=== PATIENT | male | born 1995 | race Caucasian/White ===

== ENCOUNTER → 2017-04-10 13:31 | Emergency (ER) | payer BC ==
[~2017-04-10 13:31] MED LIST: HYDROcodone/ACETAMIN 5-325 MG* 1 TAB PO ONE; Tetan/Diph/Pertus SYR(Tdap)* 0.5 ML SYR(BOOSTRIX) use SYR IM ONE
[2017-04-10 16:59] VITALS: BP 140/67
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
== END | disposition home or self-care (01) ==
LOC: ED 13:31
DX: T23.061A Burn of unspecified degree of back of right hand, initial encounter (principal); T22.011A Burn of unspecified degree of right forearm, initial encounter; T31.0 Burns involving less than 10% of body surface; X08.8XXA Exposure to other specified smoke, fire and flames, initial encounter; Y93.89 Activity, other specified; Y92.000 Kitchen of unspecified non-institutional (private) residence as the place of occurrence of the external cause; Z23 Encounter for immunization; F17.210 Nicotine dependence, cigarettes, uncomplicated
CPT/HCPCS: 90471; 90715; 99282

== ENCOUNTER 2018-07-13 15:55 | Emergency (ER) | payer SELFPAY ==
[2018-07-13 16:07] VITALS: BP 159/98
[2018-07-13] MEDS ORDERED: cefTRIAXone VIAL(*) 250 MG VIAL IM ONE (16:41)
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
[2018-07-13] MEDS ORDERED: Lidocaine 1%* 5 ML VIAL INJ ONE (16:57)
--- NOTE | 2018-07-14 17:26 | ED ---
Progress - Progress Note Progress Note: chlamydia negative in the urine, d/o doxycycline Course/Dx - Diagnoses Provider Diagnoses: Urethritis, nonspecific Discharge - Sign-Out/Discharge Documenting (check all that apply): Patient Departure All imaging exams completed and their final reports reviewed: No Studies - Discharge Plan Condition: Good Disposition: HOME Prescriptions: DOXYcycline CAP(*) [DOXYcycline 100MG CAP(*)] 100 mg PO BID 7 Days #14 cap Patient Education Materials: Nonspecific Urethritis in Men (ED) Referrals: Salomón Ying MD [Primary Care Provider] - - Billing Disposition and Condition Condition: GOOD Disposition: Home
== END 2018-07-13 17:23 | disposition home or self-care (01) ==
LOC: UCEAST 15:55
DX: N34.2 Other urethritis (principal); F17.200 Nicotine dependence, unspecified, uncomplicated
CPT/HCPCS: 81003; 87491; 87591; 99212; G0463; J0696

== ENCOUNTER 2018-08-08 22:41 | Emergency (ER) | payer BC ==
--- NOTE | 2018-08-08 23:00 | ED ---
Upper Extremity Pain - HPI Summary HPI Summary: Patient is a 23 y/o M presenting to ED with complaints of right shoulder pain. An hour ago, patient slipped on ice, grabbed a bar to hold himself up, patient experienced pain afterwards. He denies Hx of dislocated shoulders, musculoskeletal problems. Patient last ate at 1800 today. On triage, pain is rated 7/10, nothing is noted to aggravate/alleviate Sx. Home medications and allergies are reviewed. - History of Current Complaint Chief Complaint: EDExtremityUpper Stated Complaint: RIGHT SHOULDER INJURY Time Seen by Provider: 08/08/18 22:51 Hx Obtained From: Patient Mechanism Of Injury: Fall From A Standing Position Onset/Duration: Started Hours Ago - 1 hour, Still Present Timing: Constant, Lasting Hours - 1 hour Severity Currently: Severe - 7/10 Pain Location: Shoulder - right Aggravating Factor(s): Nothing Alleviating Factor(s): Nothing Associated Signs & Symptoms: Positive: Other - right shoulder pain - Allergies/Home Medications Allergies/Adverse Reactions: Allergies Allergy/AdvReac Type Severity Reaction Status Date / Time No Known Allergies Allergy Verified 08/08/18 22:53 PMH/Surg Hx/FS Hx/Imm Hx Sensory History: Denies: Hx Legally Blind, Hx Deafness Opthamlomology History: Denies: Hx Legally Blind EENT History: Denies: Hx Deafness - Surgical History Surgery Procedure, Year, and Place: appy Infectious Disease History: No Infectious Disease History: Denies: Traveled Outside the [place] in Last 30 Days - Family History Known Family History: Positive: Hypertension Negative: Cardiac Disease, Diabetes - Social History Alcohol Use: Daily Alcohol Amount: 2-3 Substance Use Type: Reports: None Hx Tobacco Use: Yes Smoking Status (MU): Heavy Every Day Tobacco Smoker Review of Systems Negative: Fever - on vitals, temp is 99.3 F Musculoskeletal: Other - POSITIVE - RIGHT SHOULDER PAIN All Other Systems Reviewed And Are Negative: Yes Physical Exam - Summary Physical Exam Summary: VITAL SIGNS: Reviewed. GENERAL: Patient is a well-developed and nourished male who is lying comfortable in the stretcher. Patient is not in any acute respiratory distress. HEAD AND FACE: No signs of trauma. No ecchymosis, hematomas or skull depressions. No sinus tenderness. EYES: PERRLA, EOMI x 2, No injected conjunctiva, no nystagmus. EARS: Hearing grossly intact. Ear canals and tympanic membranes are within normal limits. MOUTH: Oropharynx within normal limits. NECK: Supple, trachea is midline, no adenopathy, no JVD, no carotid bruit, no c- spine tenderness, neck with full ROM. CHEST: Symmetric, no tenderness at palpation LUNGS: Clear to auscultation bilaterally. No wheezing or crackles. CVS: Regular rate and rhythm, S1 and S2 present, no murmurs or gallops appreciated. ABDOMEN: Soft, non-tender. No signs of distention. No rebound no guarding, and no masses palpated. Bowel sounds are normal. EXTREMITIES: No edema, no cyanosis or clubbing. Right shoulder tenderness, patient is neurovascularly intact. NEURO: Alert and oriented x 3. No acute neurological deficits. Speech is normal and follows commands. SKIN: Dry and warm Triage Information Reviewed: Yes Vital Signs On Initial Exam: Initial Vitals Temp Pulse Resp BP Pulse Ox 99.3 F 78 16 161/100 99 08/08/18 22:46 08/08/18 22:46 08/08/18 22:46 08/08/18 22:46 08/08/18 22:46 Vital Signs Reviewed: Yes Procedures - Procedure Summary Procedure Summary: Patient was given 5 mg Versed and 100 mcg Fentanyl for moderate sedation. Traction, counter-traction used for right shoulder reduction attempt, right shoulder was reduced with no complications. Patient is neuro-vascularly intact pre and post procedure, post reduction x-ray showed good alignment. Patient was given sling for right arm. - Joint Reduction RIGHT SHOULDER Joint Reduction Site: shoulder (R) Conscious Sedation: Yes Pre-Procedure NV Exam: Yes - Pt is neurovascularly intact pre and post reduction Post Joint Reduction Film: joint reduced Diagnostics - Vital Signs Vital Signs Temp Pulse Resp BP Pulse Ox 08/08/18 22:46 99.3 F 78 16 161/100 99 - Laboratory Lab Statement: Any lab studies that have been ordered have been reviewed, and results considered in the medical decision making process. - Radiology right shoulder x-ray Radiology Interpretation Completed By: ED Physician Summary of Radiographic Findings: Anterior shoulder dislocation, pending official report. right shoulder x-ray post reduction Radiology Interpretation Completed By: ED Physician Summary of Radiographic Findings: Right shoulder x-ray post reduction showed good alignment, no fracture, pending official report. Re-Evaluation - Re-Evaluation First Eval Re-Evaluation Time: 23:17 Change: Improved Comment: Versed, fentanyl administered, shoudler reduction was done successfully. Course/Dx - Course Course Of Treatment: Patient is a 23 y/o M presenting to ED with complaints of right shoulder pain. An hour ago, patient slipped on ice, grabbed a bar to hold himself up, patient experienced pain afterwards. He denies Hx of dislocated shoulders, musculoskeletal problems. Patient last ate at 1800 today. On physical exam, right shoulder tenderness is noted, patient is neurovascularly intact. During ED course, patient was given fluids. Right shoulder x-ray showed Anterior shoulder dislocation. Shoulder reduction was done. Patient was given 5 mg Versed and 100 mcg Fentanyl for moderate sedation. Traction, counter- traction used for right shoulder reduction attempt, right shoulder was reduced with no complications. Patient is neuro-vascularly intact pre and post procedure , post reduction x-ray showed good alignment. Patient was given sling for right arm. He was discharged with instruction to follow up with PCP and ortho, patient is agreeable with this. - Diagnoses Provider Diagnoses: Dislocation, shoulder closed, Dislocation of right shoulder joint Discharge - Sign-Out/Discharge Documenting (check all that apply): Patient Departure - discharge Patient Received Moderate/Deep Sedation with Procedure: Yes - Discharge Plan Condition: Stable Disposition: HOME Patient Education Materials: Shoulder Dislocation (ED), Moderate Sedation (ED) Referrals: Salomón Ying MD [Primary Care Provider] - 2 Days Salomón Muller MD [Medical Doctor] - 2 Days Additional Instructions: RETURN TO THE EMERGENCY DEPARTMENT FOR CHANGING OR WORSENING SYMPTOMS. FOLLOW UP WITH PRIMARY CARE PHYSICIAN AND ORTHOPEDICS IN 1-2 DAYS. - Billing Disposition and Condition Condition: STABLE Disposition: Home - Attestation Statements Document Initiated by Scribe: Yes Documenting Scribe: WALT WASHINGTON Provider For Whom Darcy is Documenting (Include Credential): ELI FERGUSON MD Scribe Attestation: WALT Lester , monalisaed for ELI FERGUSON MD on 08/09/18 at 0529. Scribe Documentation Reviewed: Yes Provider Attestation: The documentation as recorded by the WALT sandoval accurately reflects the service I personally performed and the decisions made by me, ELI FERGUSON MD Status of Scribe Document: Viewed Procedure Note: Sedation - Sedation/Analgesia Procedure: right shoulder reduction Informed Consent Obtained: Yes Plan for Sedation: Moderate Sedation Previous Problem with Sedation: No - Pre-Procedure Exam Airway Exam:: Neck Extenstion: Full, Teeth: Normal - Post Procedure Eval Alert and Oriented: yes Normal Respiratroy Status: yes Controlled Nausea/Vomiting/Pain: yes Able to Ambulate/Baseline Mobility: yes Discharge Instructions Given: yes Complications: none Reversal Agent Used: no Face to Face Atendance Began at: 23:12 Face to Face Attandanced Ended at: 23:31
[2018-08-08] MEDS ORDERED: Midazolam* 1 MG/ML 5 ML VIAL (5 MG) IV ONE (23:16)
[2018-08-08] MEDS ORDERED: NS 0.9% 1000 ML** 1,000 ML IV ONE (23:17)
[2018-08-08] MEDS ORDERED: fentaNYL* 50 MCG/ML 2 ML VIAL (100 MCG VIAL) IV SLOW PU ONE (23:17)
[2018-08-09 00:45] VITALS: BP 150/90
== END 2018-08-09 00:48 | disposition home or self-care (01) ==
LOC: ED 22:41
DX: S43.014A Anterior dislocation of right humerus, initial encounter (principal); W00.0XXA Fall on same level due to ice and snow, initial encounter; Y92.9 Unspecified place or not applicable; F17.200 Nicotine dependence, unspecified, uncomplicated
CPT/HCPCS: 23650; 99156; 99283; J2250; J3010

== ENCOUNTER 2019-05-18 20:14 | Emergency (ER) | payer SELFPAY ==
[2019-05-18 20:27] VITALS: BP 154/96
--- NOTE | 2019-05-18 20:33 | UC ---
Lower Extremity/Ankle HPI - HPI Summary HPI Summary: L knee pain after falling directly onto it from stairs 3 days ago. has noticed worsening swelling and pain. pain w/ walking but can bear weight. - History of Current Complaint Chief Complaint: UCLowerExtremity Stated Complaint: LEFT KNEE PAIN Time Seen by Provider: 05/18/19 20:23 Hx Obtained From: Patient Pain Intensity: 5 Pain Scale Used: 0-10 Numeric Aggravating Factor(s): Ambulation Alleviating Factor(s): Rest Able to Bear Weight: Yes - Allergies/Home Medications Allergies/Adverse Reactions: Allergies Allergy/AdvReac Type Severity Reaction Status Date / Time No Known Allergies Allergy Verified 05/18/19 20:27 Home Medications: Home Medications Acetaminophen TAB* [Tylenol TAB*] 975 mg 05/18/19 [History] PMH/Surg Hx/FS Hx/Imm Hx - Additional Past Medical History Additional PMH: no chronic conditions. Previously Healthy: Yes - Surgical History Surgical History: None Surgery Procedure, Year, and Place: appy Other Surgical History: appendectomy - Family History Known Family History: Positive: Hypertension Negative: Cardiac Disease, Diabetes - Social History Alcohol Use: Daily Alcohol Amount: 2-3 Substance Use Type: None Smoking Status (MU): Heavy Every Day Tobacco Smoker Review of Systems All Other Systems Reviewed And Are Negative: Yes Constitutional: Negative: Fever, Chills, Fatigue Skin: Negative: Rash Respiratory: Negative: Shortness Of Breath Musculoskeletal: Positive: Arthralgia, Decreased ROM, Edema - L knee Neurological: Negative: Weakness, Paresthesia, Numbness Physical Exam Triage Information Reviewed: Yes Appearance: Well-Appearing Vital Signs: Initial Vital Signs Temp 97.0 F 05/18/19 20:21 Pulse 103 05/18/19 20:21 Resp 16 05/18/19 20:21 BP 154/96 05/18/19 20:21 Pulse Ox 98 05/18/19 20:21 Vital Signs Reviewed: Yes Respiratory: Positive: No respiratory distress Cardiovascular: Positive: Brisk Capillary Refill Musculoskeletal: Positive: ROM Intact - l knee, Edema @ - l knee, Other: - pain w/ straight leg test Neurological: Positive: Alert Skin: Positive: Other - abrasion at L knee Diagnostics - Radiology No standard instances Radiology Interpretation Completed By: ED Physician, Radiologist Summary of Radiographic Findings: Patellar fracture Lower Extremity Course/Dx - Course Course Of Treatment: L patellar fracture after a fall 3 days ago. Abrasion on exam. Will send pain meds and cover w/ antibx. Short course of opiates and will also give nsaids. ROM intact but swelling also noted. Will wait for final read from Radiologist. Fracture is stable and vertical. Will stabilize knee and he will see Ortho on Tuesday. BP elevated but he can discuss with pcp. - Differential Dx/Diagnosis Differential Diagnosis/HQI/PQRI: Fracture (Closed), Fracture (Open), Tenosynovitis, Other Provider Diagnosis: Patellar sleeve fracture of left knee Discharge ED - Sign-Out/Discharge Documenting (check all that apply): Patient Departure All imaging exams completed and their final reports reviewed: No - Discharge Plan Condition: Good Disposition: HOME Prescriptions: Cephalexin CAP* [Keflex CAP*] 500 mg PO TID 3 Days #9 cap Ibuprofen [Ibu] 600 mg PO TID 30 Days #90 tablet oxyCODONE/Acetamin 5/325 MG* [Percocet 5/325 TAB*] 1 tab PO Q8H PRN 5 Days #15 tab MDD mdd: 15mg PRN Reason: Pain - Severe Patient Education Materials: Patellar Fracture (ED) Referrals: Tala Steward MD [Medical Doctor] - Additional Instructions: Please call Ortho tomorrow to schedule appointment to be seen. - Billing Disposition and Condition Condition: GOOD Disposition: Home
--- NOTE | 2019-05-19 09:38 | UC ---
- Progress Note Progress Note: Final x-ray results of the left knee reviewed today. X-ray of the left knee:IMPRESSION: Nondisplaced fracture of the medial pole of the patella extending into the joint space. Joint effusion is present. Wet read is correct and was recommended to follow up with orthopedics on Tuesday. No change in plan Course/Dx - Diagnoses Provider Diagnoses: Patellar sleeve fracture of left knee Discharge ED - Sign-Out/Discharge Documenting (check all that apply): Post-Discharge Follow Up All imaging exams completed and their final reports reviewed: Yes - Discharge Plan Condition: Good Disposition: HOME Prescriptions: Cephalexin CAP* [Keflex CAP*] 500 mg PO TID 3 Days #9 cap Ibuprofen [Ibu] 600 mg PO TID 30 Days #90 tablet oxyCODONE/Acetamin 5/325 MG* [Percocet 5/325 TAB*] 1 tab PO Q8H PRN 5 Days #15 tab MDD mdd: 15mg PRN Reason: Pain - Severe Patient Education Materials: Patellar Fracture (ED) Referrals: Tala Steward MD [Medical Doctor] - Additional Instructions: Please call Ortho tomorrow to schedule appointment to be seen. - Billing Disposition and Condition Condition: GOOD Disposition: Home
== END 2019-05-18 21:18 | disposition home or self-care (01) ==
LOC: UCEAST 20:14
DX: S82.002A Unspecified fracture of left patella, initial encounter for closed fracture (principal); F17.290 Nicotine dependence, other tobacco product, uncomplicated; W10.9XXA Fall (on) (from) unspecified stairs and steps, initial encounter; Y92.9 Unspecified place or not applicable
CPT/HCPCS: 99212; G0463